=== PATIENT | female | born 1970 ===

== ENCOUNTER 2017-05-07 09:02 | Emergency (ER) | payer SELFPAY ==
[2017-05-07 09:09] VITALS: BMI 34.0
[2017-05-07 09:11] VITALS: O2SAT 100
--- NOTE | 2017-05-07 09:36 | C.PDOC ---
History Of Present Illness 46 yr old female presents to the ER with complaints of headache and dizziness, intermittently for the past 1 week. Patient states the headache is frontal and 6 /10. Patient denies fever, chills, vision changes, chest pain, SOB, nausea, vomiting, abdominal pain, neck pain, weakness or numbness. Time Seen by Provider: 05/07/17 09:33 Chief Complaint (Nursing): Headache History Per: Patient History/Exam Limitations: no limitations Onset/Duration Of Symptoms: Intermittent Episodes (1 week) Current Symptoms Are (Timing): Still Present Past Medical History Reviewed: Historical Data, Nursing Documentation, Vital Signs Vital Signs: Last Vital Signs Temp 98.4 F 05/07/17 12:09 Pulse 68 05/07/17 11:33 Resp 20 05/07/17 11:33 BP 125/79 05/07/17 11:33 Pulse Ox 100 05/07/17 11:53 Family History: States: No Known Family Hx - Social History Hx Tobacco Use: No Hx Alcohol Use: No Hx Substance Use: No - Immunization History Hx Tetanus Toxoid Vaccination: No Hx Influenza Vaccination: No Hx Pneumococcal Vaccination: No Review Of Systems Except As Marked, All Systems Reviewed And Found Negative. Constitutional: Negative for: Fever, Chills Eyes: Negative for: Vision Change Cardiovascular: Negative for: Chest Pain Respiratory: Negative for: Shortness of Breath Gastrointestinal: Negative for: Nausea, Vomiting, Abdominal Pain Musculoskeletal: Negative for: Neck Pain Neurological: Positive for: Headache, Dizziness. Negative for: Weakness, Numbness Physical Exam - Physical Exam Appears: Non-toxic, No Acute Distress Skin: Warm, Dry, No Rash Head: Atraumatic, Normacephalic Eye(s): bilateral: Normal Inspection, PERRL, EOMI Oral Mucosa: Moist Neck: Normal, Normal ROM, Supple Chest: Symmetrical, No Tenderness Cardiovascular: Rhythm Regular, No Murmur Respiratory: Normal Breath Sounds, No Rales, No Rhonchi, No Wheezing Extremity: Normal ROM, No Swelling Neurological/Psych: Oriented x3, Normal Speech, Normal Motor Gait: Steady ED Course And Treatment ECG: Interpreted By Me, Viewed By Me ECG Rhythm: Sinus Tachycardia ECG Interpretation: Normal Interpretation Of ECG: Flip T wave in inferior leads. Rate From EC (BPM) O2 Sat by Pulse Oximetry: 100 (RA) Pulse Ox Interpretation: Normal Medical Decision Making Medical Decision Making: PLAN: * EKG * Reglan IVP * Toradol IVP * Sodium Chloride IV Disposition Counseled Patient/Family Regarding: Diagnosis, Need For Followup, Rx Given - Disposition Referrals: at [facility] [Outside] Disposition: HOME/ ROUTINE Disposition Time: 11:52 Condition: STABLE Additional Instructions: Follow up with your doctor or our clinic. Take medications as indicated. Return to the Emergency Department with any further concerns. Prescriptions: Ibuprofen [Motrin] 600 mg PO TID #15 tab Instructions: Acute Headache (DC) Forms: Gen Discharge Inst [place], [facility] ([place]), Work Excuse - POA Present On Arrival: None - Clinical Impression Clinical Impression: Headache - Scribe Statement The provider has reviewed the documentation as recorded by the Daneibalpesh Dey Provider Attestation: All medical record entries made by the Daneibalpesh were at my direction and personally dictated by me. I have reviewed the chart and agree that the record accurately reflects my personal performance of the history, physical exam, medical decision making, and the department course for this patient. I have also personally directed, reviewed, and agree with the discharge instructions and disposition. ED Procedural Sedation - Pre Anesthesia Assessment Chief Complaint: Headache - Pre-Procedure Airway Assessment ASA Criteria: 1 - Healthy, normal. 2 - Mild systemic disease (No functional limitations, mildline obesity, DM withot complications, Hypertention). 3 - Severe systemic disease (Some functional limitation, stable angina, morbid obesity, controlled COPD/Asthma/CHF). 4 - Sever systemic disease constant threat to life (Unstable angina, active symptoms of COPD/Asthma, CHF/ Hypertension. 5 - Moribund - Intra-Procedure (Medications) Medications Given: Discontinued Medications Sodium Chloride (Sodium Chloride 0.9%) 1,000 mls @ 999 mls/hr IV .Q1H1M STA Stop: 05/07/17 10:57 Last Admin: 05/07/17 10:32 Dose: 999 mls/hr eMAR Start Stop Document 05/07/17 10:32 TS (Rec: 05/07/17 10:32 TS [id number]) Intravenous Solution Start Date 05/07/17 Start Time 10:32 End Date 05/07/17 End time 12:10 Total Infusion Time 98 Ketorolac Tromethamine (Toradol) 30 mg IVP STAT STA Stop: 05/07/17 09:58 Last Admin: 05/07/17 10:32 Dose: 30 mg MAR Pain Assessment Document 05/07/17 10:32 TS (Rec: 05/07/17 10:32 TS [id number]) Pain Reassessment Is this a pain reassessment? No IVP Administration Document 05/07/17 10:32 TS (Rec: 05/07/17 10:32 TS [id number]) Charges for Administration # of IVP Administrations 1 Metoclopramide HCl (Reglan) 10 mg IVP STAT STA Stop: 05/07/17 09:58 Last Admin: 05/07/17 10:32 Dose: 10 mg IVP Administration Document 05/07/17 10:32 TS (Rec: 05/07/17 10:32 TS [id number]) Charges for Administration # of IVP Administrations 1
[2017-05-07] MEDS ORDERED: Sodium Chloride 0.9% 1,000 ML IV STA (09:57)
[2017-05-07] MEDS ORDERED: Sodium Chloride 0.9% 1,000 ML ONE (10:24)
[2017-05-07 11:34] VITALS: BP 125/79; PULSE 68; RESP 20
[2017-05-07 12:09] VITALS: TEMP 98.4
--- NOTE | 2017-05-12 06:43 | CARD ---
APPROVED REPORT EKG Measurement Heart [id number] <Conclusion> Sinus tachycardia T wave abnormality, consider anterior ischemia Abnormal ECG
== END 2017-05-07 12:09 | disposition home or self-care (01) ==
LOC: C.ER 09:02
DX: R51 Headache (principal)
CPT/HCPCS: 96361; 96374; 96375; 99285; J1885; J2765; J7040